=== PATIENT | male | born 1980 | race Caucasian/White ===

== ENCOUNTER 2017-09-20 13:56 | Emergency (ER) | payer SELFPAY | END 2017-09-20 16:25 | disposition home or self-care (01) | LOC: D.ER 13:56 | DX: S71.112A Laceration without foreign body, left thigh, initial encounter (principal); W26.9XXA Contact with unspecified sharp object(s), initial encounter; Y93.89 Activity, other specified; Y92.89 Other specified places as the place of occurrence of the external cause ==